=== PATIENT | male | born 1990 | race African-American/Black ===

== ENCOUNTER → 2018-07-23 | Outpatient (CLI) | payer OTHER ==
[2016-06-21 15:18] VITALS: BP 156/70
--- NOTE | 2018-07-23 17:08 | RAD ---
PA and lateral chest radiograph. History: Productive cough with dark sputum. Atraumatic chest pain. Comparison: October 08, 2012. Findings: Cardiomediastinal silhouette is within normal limits for size. Bilateral lung forrester appear clear without evidence of infiltrate, effusion, or pneumothorax. Impression: 1. No acute cardiopulmonary process. Electronically signed by: Jose F Mariscal MD (07/23/2018 5:05 PM) [place] [id number]
== END | disposition home or self-care (01) ==
LOC: RAD 15:24
PROVIDERS: ATTEND Specialist
DX: R05 Cough (principal)
CPT/HCPCS: 71046